=== PATIENT | male | born 1985 | race Caucasian/White ===

== ENCOUNTER 2018-05-23 11:50 | Emergency (ER) | payer OTHER ==
[2018-05-23 12:24] VITALS: BP 132/69; PULSE 73; TEMP 98
[2018-05-23] MEDS ORDERED: LIDOCAINE 1% INJ 10MG/ML (20 ML MDV) SQ ONE (12:56)
--- NOTE | 2018-05-23 13:19 | ED ---
General Adult HPI - General Chief complaint: Skin/Abscess/Foreign Body Stated complaint: Cyst on tailbone Time Seen by Provider: 05/23/18 12:51 Source: patient, family, RN notes reviewed, old records reviewed Mode of arrival: ambulatory Limitations: no limitations - History of Present Illness Initial comments: 32-year-old male presents with pain and swelling and recent diagnosis of pilonidal cyst. Patient was seen by his primary care physician early this morning. Diagnosed with likely pilonidal cyst, patient states he was prescribed pain medication however he's had significantly worsening pain and is seeking a second opinion. Patient denies fever or chills. He has no other chronic medical problems. He is given outpatient surgical referral and has an appointment on Saturday which is 4 days from now. No history of previous pilonidal cyst or abscess. - Related Data Previous Rx's Medication Instructions Recorded Amoxic-Pot Clav 875-125Mg 1 tab PO Q12HR #20 tablet 05/23/18 [Augmentin 875-125] Sulfamethox-Tmp 800-160Mg [Bactrim 1 tab PO Q12HR #20 tab 05/23/18 DS 800-160 mg] Allergies Allergy/AdvReac Type Severity Reaction Status Date / Time No Known Allergies Allergy Verified 05/23/18 12:20 Review of Systems ROS Statement: Those systems with pertinent positive or pertinent negative responses have been documented in the HPI. ROS Other: All systems not noted in ROS Statement are negative. Past Medical History Past Medical History: No Reported History History of Any Multi-Drug Resistant Organisms: None Reported Additional Past Surgical History / Comment(s): hand surgery Past Psychological History: No Psychological Hx Reported Smoking Status: Current every day smoker Past Alcohol Use History: Occasional Past Drug Use History: None Reported General Exam Limitations: no limitations General appearance: alert, in no apparent distress Head exam: Present: atraumatic, normocephalic Eye exam: Present: normal appearance, PERRL ENT exam: Present: normal exam Neck exam: Present: normal inspection. Absent: tenderness Respiratory exam: Present: normal lung sounds bilaterally. Absent: respiratory distress, wheezes Cardiovascular Exam: Present: regular rate, normal rhythm GI/Abdominal exam: Present: soft. Absent: distended, tenderness Rectal exam: Present: other (Erythema and swelling midline at the bases; induration, no central fluctuance) Course Vital Signs 05/23/18 05/23/18 12:20 13:40 Temperature 98 F Pulse Rate 73 Respiratory 18 16 Rate Blood Pressure 132/69 O2 Sat by Pulse 98 Oximetry Procedures - Incision & Drainage Consent Obtained: verbal consent Time Out Performed?: Yes Site: buttock Anesthetic Used: lidocaine 1% I&D Cleaning Method: Chloroprep, Betadine Sterile Field Used?: Yes Scalpel Used: #11 I&D Drainage Obtained: Pus, Blood Packing: Plain Culture Obtained?: No Patient Tolerated Procedure: well (Incision made just to the right of midline) Medical Decision Making - Medical Decision Making Patient with pilonidal abscess, this is 90 in the emergency department. Significant amount of purulent material is expressed, packing is applied. Patient already has outpatient referral with general surgery. He is prescribed antibiotics and will maintain this appointment. Return with worsening or changing symptoms. Disposition Clinical Impression: Pilonidal cyst with abscess Disposition: HOME SELF-CARE Condition: Good Instructions: Pilonidal Cyst (ED), Abscess Incision and Drainage (ED) Additional Instructions: Please maintain a pulmonary vascular surgery. Return with development of fever or worsening symptoms. Prescriptions: Amoxic-Pot Clav 875-125Mg [Augmentin 875-125] 1 tab PO Q12HR #20 tablet Sulfamethox-Tmp 800-160Mg [Bactrim DS 800-160 mg] 1 tab PO Q12HR #20 tab Is patient prescribed a controlled substance at d/c from ED?: No Referrals: George Estrada DO [Primary Care Provider] - 1-2 days Time of Disposition: 13:18
[2018-05-23 13:46] VITALS: RESP 16
== END 2018-05-23 13:40 | disposition home or self-care (01) ==
LOC: EC 11:50
DX: L05.01 Pilonidal cyst with abscess (principal); F17.200 Nicotine dependence, unspecified, uncomplicated
CPT/HCPCS: 99283; 10080; J2001